=== PATIENT | female | born 1970 | race Caucasian/White ===

== ENCOUNTER 2018-10-17 06:20 | Emergency (ER) | payer BC ==
--- NOTE | 2018-10-17 06:43 | Emergency Department Record ---
History of Present Illness - General Chief Complaint: Abdominal Pain Stated Complaint: ABDOMINAL PAIN Time Seen by Provider: 10/17/18 06:38 Source: Patient Mode of Arrival: Ambulatory Limitations: No limitations - History of Present Illness Initial Comments: 48 yo female presents to ED for evaluation of lower abdominal pain symptoms and nausea, vomiting after starting Augmentin last night for sinus infection. Patient denies fevers, chills. Patient reports previous osiel/tubal ligation, denies appendectomy. Patient denies health problems at her baseline. MD Complaint: Abdominal pain Onset/Timin -: Hour(s) Location: Suprapubic Radiation: None Migration to: No migration Severity: Moderate Quality: Aching Consistency: Constant Improves With: Nothing Worsens With: Vomiting Associated Symptoms: Vomiting - Related Data Patient : No Allergies Allergy/AdvReac Type Severity Reaction Status Date / Time acetaminophen [From VICODIN] Allergy Unknown ANAPHYLAXIS Verified 10/17/18 06:36 adhesive [ADHESIVE] Allergy Unknown ANAPHYLAXIS Verified 10/17/18 06:36 diclofenac potassium Allergy Unknown ANAPHYLAXIS Verified 10/17/18 06:36 [From CATAFLAM] erythromycin base Allergy Unknown ANAPHYLAXIS Verified 10/17/18 06:36 [ERYTHROMYCIN BASE] hydrocodone bitartrate Allergy Unknown ANAPHYLAXIS Verified 10/17/18 06:36 [From VICODIN] hyoscyamine sulfate Allergy Unknown ANAPHYLAXIS Verified 10/17/18 06:36 [From LEVSIN] levonorgestrel [From MIRENA] Allergy Unknown ANAPHYLAXIS Verified 10/17/18 06:36 phenazopyridine HCl Allergy Unknown ANAPHYLAXIS Verified 10/17/18 06:36 [From PYRIDIUM] Sulfa (Sulfonamide Allergy Unknown ANAPHYLAXIS Verified 10/17/18 06:36 Antibiotics) [SULFA (SULFONAMIDE ANTIBIOTICS)] tamsulosin HCl [From FLOMAX] Allergy Unknown ANAPHYLAXIS Verified 10/17/18 06:36 tramadol HCl [From ULTRAM] Allergy Unknown ANAPHYLAXIS Verified 10/17/18 06:36 ethinyl estradiol Allergy ANAPHYLAXIS Verified 10/17/18 06:36 [From Ortho Tri-Cyclen LO (28)] norgestimate Allergy ANAPHYLAXIS Verified 10/17/18 06:36 [From Ortho Tri-Cyclen LO (28)] Review of Systems Constitutional: Denies: Chills, Fever, Malaise, Night sweats Eyes: Denies: Eye discharge, Eye pain ENT: Denies: Congestion, Ear pain, Epistaxis Respiratory: Denies: Cough, Dyspnea Cardiovascular: Denies: Chest pain, Dyspnea on exertion Endocrine: Denies: Fatigue, Heat or cold intolerance Gastrointestinal: Reports: Abdominal pain, Nausea, Vomiting Genitourinary: Denies: Incontinence, Retention Musculoskeletal: Denies: Arthralgia, Back pain Skin: Denies: Bruising, Change in color Neurological: Denies: Abnormal gait, Confusion, Headache, Seizure Psychiatric: Denies: Anxiety Hematological/Lymphatic: Denies: Anemia, Blood Clots Past Medical History - SOCIAL HISTORY Smoking Status: Never smoker - RESPIRATORY Hx Respiratory Disorders: Yes Hx Pneumonia: Yes (hx) - CARDIOVASCULAR Hx Cardio Disorders: No - NEURO Hx Neuro Disorders: No - GI Hx GI Disorders: No - ENDOCRINE Hx Endocrine Disorders: Yes Hx Thyroid Disease: Yes (Hypothyroid) - MUSCULOSKELETAL Hx Musculoskeletal Disorders: No - PSYCH Hx Psych Problems: No - HEMATOLOGY/ONCOLOGY Hx Hematology/Oncology Disorders: No Family Medical History Hx Cancer: Grandparents Hx Heart Disease: Grandparents Hx HTN: Father, Grandparents Hx Stroke: Grandparents Physical Exam - General General Appearance: Alert, Oriented x3, Cooperative, Mild distress Limitations: No limitations - Head Head exam: Atraumatic, Normocephalic, Normal inspection Head exam detail: negative: Abrasion, Contusion, Bridges's sign, General tenderness, Hematoma, Laceration - Eye Eye exam: Normal appearance. negative: Conjunctival injection, Periorbital swelling, Periorbital tenderness, Scleral icterus - ENT Ear exam: negative: Auricular hematoma, Auricular trauma Nasal Exam: negative: Active bleeding, Discharge, Dried blood, Foreign body Mouth exam: negative: Drooling, Laceration, Muffled voice, Tongue elevation - Neck Neck exam: Normal inspection. negative: Meningismus, Tenderness - Respiratory Respiratory exam: Normal lung sounds bilaterally. negative: Rales, Respiratory distress, Rhonchi, Stridor - Cardiovascular Cardiovascular Exam: Normal rhythm, Normal heart sounds, Tachycardia - GI/Abdominal GI/Abdominal exam: Soft, Tenderness (TTP suprapubic region, LLQ< RLQ on examiantion.). negative: Rebound, Rigid - Rectal Rectal exam: Deferred - exam: Deferred - Extremities Extremities exam: Normal inspection. negative: Pedal edema, Tenderness - Back Back exam: Denies: CVA tenderness (R), CVA tenderness (L) - Neurological Neurological exam: Alert, Normal gait, Oriented X3 - Psychiatric Psychiatric exam: Normal affect, Normal mood - Skin Skin exam: Normal color. negative: Abrasion Type of lesion: negative: abrasion Course Vital Signs 10/17/18 06:26 Temperature 98.7 F Pulse Rate [ 114 H Pulse Ox Probe] Respiratory 24 Rate Blood Pressure 128/92 [Left Arm] Pulse Ox 100 - Reevaluation(s) Reevaluation #1: 10/17/18 07:25 Case was discussed with oncoming provider, will assume care and disposition at this time pending CT imaging and laboratory results. Medical Decision Making - Lab Data Result diagrams: 10/17/18 07:10 10/17/18 07:10 Disposition Clinical Impression: Abdominal pain Qualifiers: Abdominal location: left lower quadrant Qualified Code(s): R10.32 - Left lower quadrant pain Condition: (2) Stable Forms: Patient Portal Access Time of Disposition: 07:26 Quality - Quality Measures Quality Measures: N/A - Blood Pressure Screening Does Patient Have Any of the Following: No Blood Pressure Classification: Hypertensive Reading Systolic Measurement: 128 Diastolic Measurement: 92 Screening for High Blood Pressure: < First Hypertensive BP, F/U Documented > [ G8950] First Hypertensive Follow-up Interventions: Referral to alternative/primary care provider.
[2018-10-17] MEDS ORDERED: 0.9 % SODIUM CHLORIDE 1000ML 1,000 ML IV SCH ×2 (06:45→10:45)
[2018-10-17 07:18] LABS: BASO % 0.3 % (0-6); EOS % 3.4 % (0-6); GRAN % 70.6 % (47-80); HEMATOCRIT 43.2 % (35.0-47.0); HEMOGLOBIN 14.3 gm/dl (11.6-16.0); LYMPH % 14.9 % (16-45); MEAN CELL VOLUME 94.9 fl (81-97); MEAN CORPUSCULAR HEMOGLOBIN 31.4 pg (27-33); MEAN CORPUSCULAR HGB CONC 33.1 g/dl (32-36); MEAN PLATELET VOLUME 9.5 fl (7.4-10.4); MONO % 10.8 % (0-9); PLATELET COUNT 196 K/uL (130-400); RED BLOOD COUNT 4.55 M/uL (3.80-5.40); RED CELL DISTRIBUTION WIDTH 13.8 % (11.5-14.5); WHITE BLOOD COUNT W/O DIFF 6.8 K/uL (4.2-12.2)
[2018-10-17 08:23] LABS: BLOOD UREA NITROGEN 10 mg/dL (6-20); CREATININE 0.8 mg/dL (0.5-0.9); EST GLOMERULAR FILTRATION RATE > 60 mL/min
[2018-10-17 08:24] LABS: LIPASE 15 U/L (13-60); TOTAL PROTEIN 6.4 g/dL (6.6-8.7)
[2018-10-17 08:26] LABS: GLUCOSE,RANDOM 102 mg/dL (74-109)
[2018-10-17 08:29] LABS: ALB/GLOB RATIO 1.2 (1.1-1.8); ALBUMIN 3.5 g/dL (4.0-5.0); ALKALINE PHOSPHATASE 77 U/L (35-104); ALT/SGPT 26 U/L (<33); AST/SGOT 20 U/L (10.0-35.0)
[2018-10-17 09:57] LABS: URINE APPEARANCE CLEAR; URINE BILIRUBIN NEGATIVE (NEGATIVE); URINE BLOOD NEGATIVE (NEGATIVE); URINE COLOR YELLOW; URINE GLUCOSE (UA) NEGATIVE (NEGATIVE); URINE KETONE NEGATIVE (NEGATIVE); URINE LEUKOCYTE ESTERASE NEGATIVE (NEGATIVE); URINE NITRITE NEGATIVE (NEGATIVE); URINE PROTEIN NEGATIVE (NEGATIVE)
[2018-10-17 11:04] LABS: STREP A SCREEN NEGATIVE (NEGATIVE)
[2018-10-17 11:11] LABS: INFLUENZA A NEGATIVE (NEGATIVE); INFLUENZA B NEGATIVE (NEGATIVE)
--- NOTE | 2018-10-17 11:12 | Emergency Department Record ---
History of Present Illness - General Chief Complaint: Abdominal Pain Stated Complaint: ABDOMINAL PAIN Time Seen by Provider: 10/17/18 06:38 Source: Patient Mode of Arrival: Ambulatory Limitations: No limitations - History of Present Illness Initial Comments: cough and congestin and sore throat and seen at [facility] yesterday and diag with sinusitis and started on augmentin and she took one pill and three hours later vomiting and developed suprapubic abd pain. No diarrhea and she had a previous GB removal and tubal ligation and she came to the ED and seen by Dr Guevara who ordered labs and CT scan and at my evaluation coughing up sputum yellow and his throat is red with exudayte and has midline abdominal pain over the bladder. No guarding or rebound or rigidity. MD Complaint: Abdominal pain Onset/Timin -: Hour(s) Location: Suprapubic Radiation: None Migration to: No migration Severity: Moderate Severity scale (1-10): 9 Quality: Aching Consistency: Constant Improves With: Nothing Worsens With: Vomiting Context: Recent antibiotic use Associated Symptoms: Vomiting Treatments Prior to Arrival: NSAIDs - Related Data Patient : No Allergies Allergy/AdvReac Type Severity Reaction Status Date / Time acetaminophen [From VICODIN] Allergy Unknown ANAPHYLAXIS Verified 10/17/18 06:36 adhesive [ADHESIVE] Allergy Unknown ANAPHYLAXIS Verified 10/17/18 06:36 diclofenac potassium Allergy Unknown ANAPHYLAXIS Verified 10/17/18 06:36 [From CATAFLAM] erythromycin base Allergy Unknown ANAPHYLAXIS Verified 10/17/18 06:36 [ERYTHROMYCIN BASE] hydrocodone bitartrate Allergy Unknown ANAPHYLAXIS Verified 10/17/18 06:36 [From VICODIN] hyoscyamine sulfate Allergy Unknown ANAPHYLAXIS Verified 10/17/18 06:36 [From LEVSIN] levonorgestrel [From MIRENA] Allergy Unknown ANAPHYLAXIS Verified 10/17/18 06:36 phenazopyridine HCl Allergy Unknown ANAPHYLAXIS Verified 10/17/18 06:36 [From PYRIDIUM] Sulfa (Sulfonamide Allergy Unknown ANAPHYLAXIS Verified 10/17/18 06:36 Antibiotics) [SULFA (SULFONAMIDE ANTIBIOTICS)] tamsulosin HCl [From FLOMAX] Allergy Unknown ANAPHYLAXIS Verified 10/17/18 06:36 tramadol HCl [From ULTRAM] Allergy Unknown ANAPHYLAXIS Verified 10/17/18 06:36 ethinyl estradiol Allergy ANAPHYLAXIS Verified 10/17/18 06:36 [From Ortho Tri-Cyclen LO (28)] norgestimate Allergy ANAPHYLAXIS Verified 10/17/18 06:36 [From Bag Borrow or Steal-Array Bridgen LO (28)] Travel Screening - Travel/Exposure Within Last 30 Days Have you traveled within the last 30 days?: No - Travel/Exposure Within Last Year Have you traveled outside the [place] in the last year?: No - Additonal Travel Details Have you been exposed to anyone with a communicable illness?: No - Travel Symptoms Symptom Screening: None Review of Systems Constitutional: Denies: Chills, Fever, Malaise, Night sweats Eyes: Denies: Eye discharge, Eye pain ENT: Denies: Congestion, Ear pain, Epistaxis Respiratory: Denies: Cough, Dyspnea Cardiovascular: Denies: Chest pain, Dyspnea on exertion Endocrine: Denies: Fatigue, Heat or cold intolerance Gastrointestinal: Reports: Abdominal pain, Nausea, Vomiting Genitourinary: Denies: Incontinence, Retention Musculoskeletal: Denies: Arthralgia, Back pain Skin: Denies: Bruising, Change in color Neurological: Denies: Abnormal gait, Confusion, Headache, Seizure Psychiatric: Denies: Anxiety Hematological/Lymphatic: Denies: Anemia, Blood Clots Past Medical History - SOCIAL HISTORY Smoking Status: Never smoker - RESPIRATORY Hx Respiratory Disorders: Yes Hx Pneumonia: Yes (hx) - CARDIOVASCULAR Hx Cardio Disorders: No - NEURO Hx Neuro Disorders: No - GI Hx GI Disorders: No - Hx Genitourinary Disorders: Yes Hx Kidney Stones: Yes - ENDOCRINE Hx Endocrine Disorders: Yes Hx Thyroid Disease: Yes (Hypothyroid) - MUSCULOSKELETAL Hx Musculoskeletal Disorders: No - PSYCH Hx Psych Problems: No - HEMATOLOGY/ONCOLOGY Hx Hematology/Oncology Disorders: No Family Medical History Hx Cancer: Grandparents Hx Heart Disease: Grandparents Hx HTN: Father, Grandparents Hx Stroke: Grandparents Physical Exam - General General Appearance: Alert, Oriented x3, Cooperative, No acute distress Limitations: No limitations - Head Head exam: Normal inspection - Eye Eye exam: Normal appearance, PERRL Pupils: Normal accommodation - ENT ENT exam: Normal exam, Mucous membranes moist, Normal external ear exam, Normal orophraynx, TM's normal bilaterally Ear exam: Normal external inspection. negative: External canal tenderness Nasal Exam: Normal inspection. negative: Discharge, Sinus tenderness Mouth exam: Normal external inspection, Tongue normal Teeth exam: Normal inspection. negative: Dental caries Throat exam: Normal inspection. negative: Tonsillar erythema, Tonsillar exudate - Neck Neck exam: Normal inspection, Full ROM. negative: Tenderness - Respiratory Respiratory exam: Normal lung sounds bilaterally. negative: Respiratory distress - Cardiovascular Cardiovascular Exam: Regular rate, Normal rhythm, Normal heart sounds - GI/Abdominal GI/Abdominal exam: Soft, Normal bowel sounds. negative: Tenderness - Rectal Rectal exam: Deferred - exam: Deferred - Extremities Extremities exam: Normal inspection, Full ROM, Normal capillary refill. negative: Tenderness - Back Back exam: Reports: Normal inspection, Full ROM. Denies: Muscle spasm, Rash noted, Tenderness - Neurological Neurological exam: Alert, Normal gait, Oriented X3, Reflexes normal - Psychiatric Psychiatric exam: Normal affect, Normal mood - Skin Skin exam: Dry, Intact, Normal color, Warm Course Vital Signs 10/17/18 06:26 Temperature 98.7 F Pulse Rate [ 114 H Pulse Ox Probe] Respiratory 24 Rate Blood Pressure 128/92 [Left Arm] Pulse Ox 100 - Reevaluation(s) Reevaluation #1: feeling better 10/17/18 11:49 Medical Decision Making - Data Complexity MDM Data: Labs Ordered and/or Reviewed (negative urine and WBC 6,800 ), X-Ray Ordered and/or Reviewed (CT essentially negative with thicening of the bladder ) - Lab Data Result diagrams: 10/17/18 07:10 10/17/18 08:05 Lab Results 10/17/18 10/17/18 10/17/18 Range/Units 07:10 08:05 09:50 WBC 6.8 (4.2-12.2) K/uL RBC 4.55 (3.80-5.40) M/uL Hgb 14.3 (11.6-16.0) gm/dl Hct 43.2 (35.0-47.0) % MCV 94.9 (81-97) fl MCH 31.4 (27-33) pg MCHC 33.1 (32-36) g/dl RDW 13.8 (11.5-14.5) % Plt Count 196 (130-400) K/uL MPV 9.5 (7.4-10.4) fl Gran % 70.6 (47-80) % Lymphocytes % 14.9 L (16-45) % Monocytes % 10.8 H (0-9) % Eosinophils % 3.4 (0-6) % Basophils % 0.3 (0-6) % Sodium 141 (136-145) mmol/L Potassium 4.3 (3.4-4.5) mmol/L Chloride 107 (98-107) mmol/L Carbon Dioxide 24.0 (22-29) mmol/L Anion Gap 10.0 (7-16) BUN 10 (6-20) mg/dL Creatinine 0.8 (0.5-0.9) mg/dL Estimated GFR > 60 mL/min Random Glucose 102 (74-109) mg/dL Calcium 8.9 (8.6-10.0) mg/dL Total Bilirubin 0.50 (0.2-1.0) mg/dL AST 20 (10.0-35.0) U/L ALT 26 (<33) U/L Alkaline Phosphatase 77 (35-104) U/L Total Protein 6.4 L (6.6-8.7) g/dL Albumin 3.5 L (4.0-5.0) g/dL Globulin 2.9 (1.4-4.8) gm/dL Albumin/Globulin Ratio 1.2 (1.1-1.8) Lipase 15 (13-60) U/L Urine Color Yellow Urine Appearance Clear Urine pH 8.0 (5.0-8.0) Ur Specific Sumner 1.010 (1.002-1.030) Urine Protein Negative (NEGATIVE) Urine Glucose (UA) Negative (NEGATIVE) Urine Ketones Negative (NEGATIVE) Urine Blood Negative (NEGATIVE) Urine Nitrite Negative (NEGATIVE) Urine Bilirubin Negative (NEGATIVE) Urine Urobilinogen 1.0 (0.20 - 1.00) E.U./dL Ur Leukocyte Esterase Negative (NEGATIVE) Group A Strep Screen (NEGATIVE) 10/17/18 Range/Units 10:50 WBC (4.2-12.2) K/uL RBC (3.80-5.40) M/uL Hgb (11.6-16.0) gm/dl Hct (35.0-47.0) % MCV (81-97) fl MCH (27-33) pg MCHC (32-36) g/dl RDW (11.5-14.5) % Plt Count (130-400) K/uL MPV (7.4-10.4) fl Gran % (47-80) % Lymphocytes % (16-45) % Monocytes % (0-9) % Eosinophils % (0-6) % Basophils % (0-6) % Sodium (136-145) mmol/L Potassium (3.4-4.5) mmol/L Chloride (98-107) mmol/L Carbon Dioxide (22-29) mmol/L Anion Gap (7-16) BUN (6-20) mg/dL Creatinine (0.5-0.9) mg/dL Estimated GFR mL/min Random Glucose (74-109) mg/dL Calcium (8.6-10.0) mg/dL Total Bilirubin (0.2-1.0) mg/dL AST (10.0-35.0) U/L ALT (<33) U/L Alkaline Phosphatase (35-104) U/L Total Protein (6.6-8.7) g/dL Albumin (4.0-5.0) g/dL Globulin (1.4-4.8) gm/dL Albumin/Globulin Ratio (1.1-1.8) Lipase (13-60) U/L Urine Color Urine Appearance Urine pH (5.0-8.0) Ur Specific Sumner (1.002-1.030) Urine Protein (NEGATIVE) Urine Glucose (UA) (NEGATIVE) Urine Ketones (NEGATIVE) Urine Blood (NEGATIVE) Urine Nitrite (NEGATIVE) Urine Bilirubin (NEGATIVE) Urine Urobilinogen (0.20 - 1.00) E.U./dL Ur Leukocyte Esterase (NEGATIVE) Group A Strep Screen Negative (NEGATIVE) Disposition Clinical Impression: Abdominal pain Qualifiers: Abdominal location: left lower quadrant Qualified Code(s): R10.32 - Left lower quadrant pain Disposition: Home, Self-Care Condition: (2) Stable Instructions: Viral Syndrome (ED) Additional Instructions: follow up with family Dr in [address] Geovanny Harris Danilo fluids stop augmentin tylenol for pain fluids and rest Time of Disposition: 11:49 Quality - Quality Measures Quality Measures: N/A - Blood Pressure Screening Does Patient Have Any of the Following: No Blood Pressure Classification: Hypertensive Reading Systolic Measurement: 128 Diastolic Measurement: 92 Screening for High Blood Pressure: < Pre-Hypertensive BP, F/U Documented > [ G8950] Pre-Hypertensive Follow-up Interventions: Referral to alternative/primary care provider.
--- NOTE | 2018-10-19 08:29 | CT SCAN REPORT ---
EXAM: CT OF THE ABDOMEN AND PELVIS WITH CONTRAST HISTORY: PELVIC PAIN AND PRESSURE, VOMITING. TECHNIQUE: CT of the abdomen and pelvis was performed with 100 ml Omnipaque 300 intravenous contrast. Comparison: None. FINDINGS: Noncalcified 5 mm nodule in the left lower lobe. The gallbladder is surgically absent. No significant abnormalities of the liver , adrenal glands, pancreas, or spleen. Symmetric renal perfusion. No hydronephrosis. Tiny bilateral lower attenuation renal lesions, too small to further characterize, but likely cysts. No focal colonic thickening or inflammation. Normal appendix. Fluid containing nondilated small bowel loops. No free air or free fluid. Small focus of calcification within the uterus, possibly a fibroid. Mildly thickened appearance of the urinary bladder wall diffusely. The abdominal aorta is not dilated. No mesenteric or retroperitoneal lymphadenopathy. Small fat containing umbilical hernia. IMPRESSION: 1. MILDLY THICKENED APPEARANCE OF THE URINARY BLADDER WALL; MAY BE SEEN WITH CYSTITIS. 2. OTHERWISE, NO ACUTE FINDINGS IN THE ABDOMEN OR PELVIS. 3. INCIDENTAL 5 MM LEFT LOWER LOBE PULMONARY NODULE; IF PATIENT HAS A SMOKING HISTORY, THEN FOLLOW-UP CT IN TWELVE MONTHS IS RECOMMENDED OTHERWISE NO FOLLOW- UP REQUIRED. JOB NUMBER: [id number] [facility]
== END 2018-10-17 12:26 | disposition home or self-care (01) ==
LOC: ER 06:20
DX: R10.32 Left lower quadrant pain (principal); R05 Cough; R11.2 Nausea with vomiting, unspecified
CPT/HCPCS: 99284 ×2; 96360; 83690; 85025; 80053; 81003; 87880; 87400; 74177; Q9967; J7030